=== PATIENT | female | born 1975 | race Caucasian/White ===

== ENCOUNTER 2019-07-23 04:53 | Emergency (ER) | payer SELFPAY ==
[~2019-07-23] VITALS: Ht 152.4 cm; Wt 68.0 kg
[2019-07-23 04:58] VITALS: BP 121/89
--- NOTE | 2019-07-23 05:05 | NUR ---
44 Y/O F C/O CHEST SHARP PAIN X 1 WEEK, INCREASING OVER THE LAST 2 DAYS. TOOK MOTRIN 2030 YESTERDAY. PT STATES PAIN RADIATES TO LEFT SIDE OF HER BODY. DENIES N/V/D. LUNG SOUNDS CLEAR, ABDOMEN SOFT AND NON TENDER. DENIES ANY OTHER SYMPTOMS AT THIS TIME. MED HX: ASTHMA ALLERGY: PENICILLIN
--- NOTE | 2019-07-23 05:10 | NUR ---
DR ESPINOZA AT BEDSIDE.
--- NOTE | 2019-07-23 05:10 | NUR ---
EKG PERFORMED AT BEDSIDE WITH SPOUSE PRESENT
[2019-07-23] MEDS ORDERED: MORPHINE SULFATE 2 MG/ML SYR IVP ONE ×2 (05:15→06:50)
[2019-07-23] MEDS ORDERED: NACL 0.9% 1,000 ML IV ONE (05:15)
--- NOTE | 2019-07-23 05:37 | NUR ---
PT BIB WHEELCHAIR TO XRAY BY [facility].
--- NOTE | 2019-07-23 05:48 | NUR ---
PT BIB WHEELCHAIR TO BED 7.
--- NOTE | 2019-07-23 05:52 | NUR ---
PT TRANSFERRED VIA WHEELCHAIR TO [facility] BY [facility].
--- NOTE | 2019-07-23 06:11 | NUR ---
PT TRANSFERRED VIA WHEELCHAIR TO BED 7
[2019-07-23 06:52] VITALS: BP 140/93
--- NOTE | 2019-07-23 06:53 | NUR ---
PATIENT ELOPED FROM FACILITY. DISCHARGE INSTRUCTIONS NOT GIVEN TO PATIENT. DR. ESPINOZA NOTIFIED. PT REFUSED TO COMPLETE IV FLUIDS, IV REMOVED AND ID BAND REMOVED. IV SITE CLEAN, DRY, INTACT. PT STATED "I DONT WANT TO WAIT ANYMORE IM LEAVING."
--- NOTE | 2019-07-23 12:05 | NUR ---
Late entry. COnfirmed with RN that 0.9 NS IV completed at 0620
== END 2019-07-23 06:52 | disposition left against medical advice (07) ==
LOC: MED 04:53
DX: S20.212A Contusion of left front wall of thorax, initial encounter (principal); J45.909 Unspecified asthma, uncomplicated; F12.10 Cannabis abuse, uncomplicated; Z88.0 Allergy status to penicillin; W19.XXXA Unspecified fall, initial encounter; Y93.89 Activity, other specified; Y92.89 Other specified places as the place of occurrence of the external cause; Y99.8 Other external cause status
CPT/HCPCS: 71100; 71101; 93005; 96374; 99284; J2270; J7030